=== PATIENT | female | born 2005 | race Two or more races ===

== ENCOUNTER 2025-03-07 09:47 | Outpatient (CLI) | payer MEDICAID ==
[2025-03-07 10:10] LABS: Basophils # (auto) 0 10 ^3/uL (0-0.2); Basophils % (auto) 0.1 % (0.0-2.0); Eosinophils # (auto) 0.2 10 ^3/uL (0-0.8); Nucleated Red Blood Cells % 0.1 %
[2025-03-07 10:11] LABS: Eosinophils % (auto) 1.4 % (0.0-7.0); Hematocrit 35.9 % (36.0-46.0); Lymphocytes # (auto) 2.3 10 ^3/uL (0.4-5.4); Lymphocytes % (auto) 14.9 % (10.0-50.0); Mean Corpuscular Hemoglobin 24.7 pg (28.0-32.0); Mean Corpuscular Hgb Conc. 33.3 g/dL (32.0-36.0); Mean Corpuscular Volume 74.2 fL (80.0-100.0); Monocytes # (auto) 0.7 10 ^3/uL (0-1.3); Monocytes % (auto) 4.9 % (0.0-12.0); Neutrophils % (auto) 78.7 % (37.0-80.0); Platelet Count (auto) 315 10^3/uL (140-450); Red Blood Cells 4.84 10^6/uL (4.0-5.20); Red Cell Distribution Width 14.7 % (11.8-14.3); White Blood Cell 15.2 10^3/uL (4.4-10.8)
== END 2025-03-07 17:00 | disposition home or self-care (01) ==
LOC: LAB 09:47
PROVIDERS: ATTEND Obstetrics & Gynecology
DX: Z34.80 Encounter for supervision of other normal pregnancy, unspecified trimester (principal)
CPT/HCPCS: 36415; 82951; 83036; 85025

== ENCOUNTER → 2025-03-20 | Outpatient (CLI) | payer MEDICAID | END | disposition home or self-care (01) | LOC: LAB 08:25 | PROVIDERS: ATTEND Obstetrics & Gynecology | DX: Z34.83 Encounter for supervision of other normal pregnancy, third trimester (principal) | CPT/HCPCS: 82951 ==

== ENCOUNTER → 2025-04-16 | Outpatient (CLI) | payer MEDICAID ==
[2025-04-16 11:56] LABS: Nucleated Red Blood Cells % 0.1 %
[2025-04-16 12:00] LABS: Hematocrit 37.9 % (36.0-46.0); Hemoglobin 12.6 g/dL (12.2-16.2); Mean Corpuscular Hemoglobin 24.9 pg (28.0-32.0); Mean Corpuscular Volume 74.7 fL (80.0-100.0)
[2025-04-18 00:06] LABS: Chlamydia Trachomatis, NAA Negative (Negative); Neisseria gonorrhoeae, NAA Negative (Negative)
== END | disposition home or self-care (01) ==
LOC: LAB 11:39
PROVIDERS: ATTEND Obstetrics & Gynecology
DX: Z34.80 Encounter for supervision of other normal pregnancy, unspecified trimester (principal); Z72.89 Other problems related to lifestyle; Z3A.00 Weeks of gestation of pregnancy not specified
CPT/HCPCS: 36415; 85025; 86780

== ENCOUNTER 2025-04-26 12:25 | Observation (INO) | payer MEDICAID ==
--- NOTE | 2025-04-26 15:00 | DVH ---
CLINICAL HISTORY: Decreased movement. COMPARISON: None TECHNIQUE: biophysical profile was performed. Transabdominal sonographic images of the fetus we re obtained. FINDINGS: The fetus is in cephalic position. heart rate measures 151 BPM. Amniotic fluid index measures 16 cm. The placenta is anterior in position without visualized evidence for previa or abrupt ion. BPP profile is an overall score of 8/8, with 2/2 points for breathing, with at least one episode of breathing over a 30 second duration during a 30 minute observation, 2/2 points for m ovements, with 3 or more discrete body or limb movements, 2/2 points for tone, with one or more episodes of extremity extension with return to flexion, or opening and closing of hand, and 2/ 2 points for amniotic fluid, with at least 1 pocket of amniotic fluid that measures 2 cm in 2 perpend icular planes. IMPRESSION: BPP score of 8/8.
[2025-04-26] MEDS ORDERED: PREN1TAB71 OR (15:01)
--- NOTE | 2025-04-27 07:42 | DVHDS2 ---
Physician Discharge Progress N Final Diagnosis: ABD PAIN,DEC MOVEMENT 37WKS Operations or Procedures: Operations or Procedures NST REACTIVE REVIEWDED,SONO Condition on Discharge: Good Disposition: Home Discharge Instructions: Diet: Regular Activity: No Restrictions, As Tolerated Medications: NA Follow Up Care: Specialist: 3D Discharge Statement: "Patient was advised to return to the ER or call 911 if any headaches, dizziness, shortness of breath, chest pain, abdominal pain, bleeding, fevers, or worsening of medical condition. Patient was counseled about treatment plan, medications, possible side effects, patientverbalized understanding. All questions were answered to the best of my ability. This discharge took greater then 30 minutes in planning, reviewing documentation, counseling the patient, and discussing with other team members." Visit Coding OBGYN Date of Service: Apr 26, 2025 Billing Provider: MIRTHA DE LA VEGA DO DIAGNOSTIC TECHNOLOGIST Common Visit Codes: [id number] INP/OBS CARE (HIGH) DIAGNOSTIC TECHNOLOGIST Procedure Codes: 22827-24- NON-STRESS TEST MIRTHA DE LA VEGA DO Apr 27, 2025 07:42
== END 2025-04-26 15:20 | disposition home or self-care (01) ==
LOC: LDRP 12:25
PROVIDERS: ADMIT Obstetrics & Gynecology; ATTEND Obstetrics & Gynecology
DX: O36.8130 Decreased fetal movements, third trimester, not applicable or unspecified (principal); Z98.890 Other specified postprocedural states; Z79.899 Other long term (current) drug therapy; Z3A.37 37 weeks gestation of pregnancy
CPT/HCPCS: 59025; 76819; 81002; G0378

== ENCOUNTER 2025-05-08 03:45 | Inpatient (IN) | payer MEDICAID ==
[2025-05-07 13:22] LABS: Hematocrit 38.6 % (36.0-46.0); Hemoglobin 13.0 g/dL (12.2-16.2); Mean Corpuscular Hemoglobin 25.1 pg (28.0-32.0); Mean Corpuscular Volume 74.6 fL (80.0-100.0); Nucleated Red Blood Cells % 0.2 %
[2025-05-07 13:34] LABS: INR 0.9 (0.9-1.15); Partial Thromboplastin Time 31.5 SEC (24.5-34.5); Prothrombin Time 9.6 sec (9.3-11.8)
[2025-05-07 13:35] LABS: Alanine Aminotransferase 10 U/L (7-40); Albumin 3.9 g/dL (3.2-4.8); Anion Gap 10 (5-15); BUN/Creatinine Ratio 12.5 (10.0-20.0); Bilirubin, Total 0.5 mg/dL (0.2-1.0); Calcium 9.0 mg/dL (8.7-10.4); Carbon Dioxide 24 mmol/L (20-31); Chloride 102 mmol/L (98-107); Glucose 81 mg/dL (74-106); Potassium 3.7 mmol/L (3.5-5.1); Sodium 136 mmol/L (136-145); Total Protein 7.0 g/dL (5.7-8.2); Uric Acid 5.5 mg/dL (3.1-7.8)
[2025-05-07 13:36] LABS: Alkaline Phosphatase 119 U/L (46-116); Blood Urea Nitrogen 6 mg/dL (9-23)
[2025-05-07 14:11] LABS: Urine Protein, UAD Negative (Negative)
[2025-05-07 14:18] LABS: Amphetamine Screen, Urine Neg (NEGATIVE); Barbiturate Scree,Urine Neg (NEGATIVE); Benzodiazephine Screen, Urine Neg (NEGATIVE); Cannabinoid Screen, Urine Neg (NEGATIVE); Cocaine Screen, Urine Neg (NEGATIVE); Opiate Scree,Urine Neg (NEGATIVE); Phencyclidine Screen, Urine Neg (NEGATIVE)
[~2025-05-08] VITALS: Ht 160 cm; Wt 61.2 kg
[2025-05-08] VITALS (18 sets, daily range): BP systolic 93–114; BP diastolic 50–71; PULSE 68–97; RESP 16–18; TEMP 97.8–98.4; O2SAT 96–100
[~2025-05-08 03:45] MED LIST: PREN1TAB71 OR
[2025-05-08] MEDS ORDERED: SODIUM CITR/CITRIC ACID ORAL SOLN 30 ML PO ONE (04:00)
[2025-05-08] MEDS: METOCLOPRAMIDE HCL 5MG/ml INJ 2ml VIAL IV ONE (04:00)
[2025-05-08] MEDS ORDERED: LACTATED RINGER'S 1,000 ML IV ONE (04:00)
[2025-05-08] MEDS: TETRACAINE 1% INJ 2 ML VIAL IJ ONE (06:55)
[2025-05-08] MEDS: ceFAZolin 2 GM/D5W50ml 50 ML IV ONE (07:04)
[2025-05-08] MEDS ORDERED: MORPHINE SULF PF 5 MG/10 ML VIAL ONE (07:06)
[2025-05-08] MEDS ORDERED: fentaNYL CITRATE 100 MCG/2 ML VL ONE (07:07)
[2025-05-08] MEDS ORDERED: DOCU-94 PO ×2 (07:10)
[2025-05-08] MEDS ORDERED: HYDR-4072 PO ×2 (07:10)
[2025-05-08] MEDS ORDERED: IBUP-1456 PO ×2 (07:10)
[2025-05-08] MEDS ORDERED: ONDANSETRON HCL 4 MG/2 ML VIAL IV PRN (07:15)
[2025-05-08] MEDS ORDERED: LACT. RINGERS/OXYTOCIN 20UNITS 1,000 ML IV ONE (07:15)
[2025-05-08] MEDS: GUM (CHEWING) 1 GUM CHEW CHEW ONE (07:15)
[2025-05-08] MEDS ORDERED: MIDAZOLAM HCL 2MG/2ML 2ml VIAL (1mg/ml) ONE (07:21)
[2025-05-08] MEDS: CARBOPROST TROMETHAMINE 250 MCG/1ML VIAL IM ONE ×2 (07:31→07:46)
[2025-05-08] MEDS ORDERED: HYDROmorphone HCL 2 MG/ML VL/or syr IV PRN ×2 (08:00→08:41)
[2025-05-08] MEDS ORDERED: hydrALAZINE HCL 20 MG/ML VL IV PRN (08:00)
[2025-05-08] MEDS: DIPHENOXYLATE W/ATROPINE 2.5 MG TAB ONE (08:30)
[2025-05-08] MEDS: LACTATED RINGER'S 1,000 ML IV SCH (09:00)
[2025-05-08] MEDS: diphenhdrAMINE HCL 50 MG/1 ML VL IV PRN (09:48)
[2025-05-08] MEDS: ACETAMINOPHEN IV 1000 MG/100ML (10MG/ML) IV PRN (14:09)
[2025-05-08] MEDS: ceFAZolin 1GM/50ML 50 ML IV SCH (14:57)
[2025-05-08] MEDS: ONDANSETRON HCL 4 MG/2 ML VIAL IV PRN (15:06)
--- NOTE | 2025-05-08 17:07 | DVHOP2 ---
Operative Report DATE OF OPERATION: 05/08/25 PREOPERATIVE DIAGNOSES: Term DESIRES PCS DUE TO ANXIETY,IUP AT 39WKS POSTOPERATIVE DIAGNOSES: SAME,OP,NUCHAL CORD,UTERINE ATONY SURGEON: Debbie Perla D.O./BENITO ANESTHESIOLOGIST: AMENA TYPE OF ANESTHESIA : SPINAL CONSENT: The patient was informed of the risks and benefits of the procedure. The patient was informed of the risks and benefits of the procedure. These include but are not limited to , complications of anesthesia, postoperative infection, incomplete relief of symptoms, recurrence of symptoms, damage to blood vessels, nerves and tendons, deep venous thrombosis, pulmonary embolism and possible need for repeat surgery in the future. FINDINGS: Baby [F] with Apgars of [9] and [9]. Grossly normal appearing tubes and ovaries.UTERINE ATONY RESPONDED TO HEMOBATE X2 PROCEDURES: Primary low transverse section. PROCEDURE IN DETAIL: The patient was taken to the operating room. She already had an epidural in place. She was then placed in supine position with a leftward tilt. A Pfannenstiel skin incision was made 2 cm above the symphysis pubis. This incision was carried to the underlying layer of fascia. The fascia was nicked in the midline. The incision was extended laterally. The superior aspect of the fascial incision was grasped and elevated. The same procedure was done to the inferior aspect of the fascial incision. The rectus muscles were then in the midline. Peritoneum was identified and entered. Peritoneal incision was extended superiorly and inferiorly with good visualization of the bladder. Bladder blade was inserted. Vesicouterine peritoneum was identified and entered. Lower uterine segment was incised in a transverse fashion. The was delivered from vertex presentation. Infant was baby [F] with Apgars [9] and [9]. Placenta was then r emoved manually. Uterus was exteriorized and cleared of all clots and debris. The incision was repaired using 0 Vicryl in a double-layered fashion. No bleeding was noted. Uterus was then returned to the abdomen. The gutters were cleared off all clots and debris. Peritoneum was closed using 0 Vicryl, fascia was closed using 0 Maxon, and skin was closed using emmy. The patient tolerated the procedure well. She was taken to the recovery room in stable condition. ESTIMATED BLOOD LOSS: Estimated blood loss was noted to be 800 mL. Visit Coding OBN Date of Service: May 08, 2025 Billing Provider: DEBBIE PERLA DO METAL STORAGE WORKER Common Visit Codes: [id number] OBS CARE (HIGH) METAL STORAGE WORKER Procedure Codes: [id number] DELIVERY ONLY DEBBIE PERLA DO May 08, 2025 17:06
--- NOTE | 2025-05-08 17:08 | POSTOP ---
Post-Operative Note Post-Operative Note Preop Diagnosis TERM PREG DESIRES PCS,ANXIETY Postop Diagnosis: SAME,OP,NUCHAL CORDX1,UTERINE ATONY Operation performed PLTCS Specimen BABY GIRL,APGARS 9-9,OP Anesthesia: Regional Anesthesiologist: AMENA Blood Loss(fluid mgmt) 800ML Surgeon Mirtha Perla Social Director BENITO Implant NA Complications & Mgmt NONE Date 05/08/25 Time 17:07 Visit Coding OBGYN Date of Service: May 08, 2025 Billing Provider: MIRTHA PERLA DO TAX MANAGER CPA Common Visit Codes: [id number] OBS CARE (HIGH) TAX MANAGER CPA Procedure Codes: [id number] DELIVERY ONLY MIRTHA PERLA DO May 08, 2025 17:08
[2025-05-08] MEDS: MORPHINE SULFATE INJ 2 MG/ml SYRG IM ONE (17:47)
[2025-05-08 22:04] LABS: Hemoglobin 11.0 g/dL (12.2-16.2); Nucleated Red Blood Cells % 0.0 %
[2025-05-08 22:05] LABS: Hematocrit 33.1 % (36.0-46.0); Mean Corpuscular Hemoglobin 25.0 pg (28.0-32.0); Mean Corpuscular Volume 75.2 fL (80.0-100.0)
[2025-05-09] VITALS (14 sets, daily range): BP systolic 100–118; BP diastolic 62–74; PULSE 69–112; RESP 16–18; TEMP 97.6–99.9; O2SAT 96–100
--- NOTE | 2025-05-09 06:14 | DVHPN2 ---
Progress Note Date Seen: May 09, 2025 Subjective Patient resting upon entry to room. Prefers her translate for her, rather than the iPad box fabricator service. Having some incision pain and requesting medication SUBJECTIVE -Lochia minimal -Regular diet well tolerated. -Ambulating and voiding well w/o feeling dizzy or lightheaded -Pain relieved with oral medication PRN. Requesting more now -Passing flatus but no BM yet. -Bottlefeeding every 3-4 hours w/o problem vital signs Vital Sign Date Time Temp Pulse Resp B/P (MAP) Pulse Ox O2 Delivery O2 Flow Rate FiO2 05/09/25 05:50 69 16 97 05/09/25 03:00 98.3 98.3 05/08/25 19:00 Room Air 05/08/25 17:47 113/50 05/08/25 08:50 0 05/08/25 08:50 97 Total Intake and Output 05/08/25 05/08/25 05/09/25 15:00 23:00 07:00 Intake Total 50 ml Output Total 900 ml 450 ml 1950 ml Balance -850 ml -450 ml -1950 ml medications Current Medications Medications Dose Ordered Sig/He Route Start Time Stop Time Status Last Admin Dose Admin Lactated Ringer's 1,000 ml @ 125 mls/hr Q8H IV 05/08/25 04:00 05/08/25 09:00 125 MLS/HR Diphenhydramine HCl 25 mg Q4HP PRN IV 05/08/25 08:00 05/08/25 09:48 25 MG Ondansetron HCl 4 mg Q4HP PRN IV 05/08/25 08:00 05/08/25 15:06 4 MG laboratory and microbiology Laboratory Tests 05/08/25 21:44 05/07/25 12:41 Test 05/07/25 12:41 Range/Units Serum Glucose 81 74-106 mg/dL Objective OBJECTIVE -A&O x4. No apparent distress. Affect appropriate -Afebrile, VSS -Chest: heart and lung sounds normal. -Breasts: Nipples intact w/o cracks or soreness -Abdomen: normal BS, soft, non-tender, no rebound or guarding, fundus firm @ U- 1. Wearing abdominal binder -Lower abdominal incision site with dressing dry and intact. No edema, erythema or induration -Extremities: no edema or tenderness Problems(with codes): (1) Status post delivery Assessment/Plan ASSESSMENT -19 yo now Post operative & ppd # 1 s/p Primary Section for anxiety, doing well. -Blood Type: B+ -Bottle feeding -Rubella Immune PLAN -Continue pain management with medications as previously ordered. One time ofirmev 1000mg IV ordered before switching to PO post-op medications -Increase fluid intake and fiber in diet to promote regular bowel movements, Laxative PRN -Educated patient on self-care and warning signs to watch for, including PPH, PPD, and pre-eclampsia -Continue routine care Plan discussed with: Patient, Spouse Plan discussed with: Patient, Spouse Visit Coding OBGYN Date of Service: May 09, 2025 Billing Provider: NIKKY MYERS CNM SCRAP HOIST OPERATOR Common Visit Codes: [id number] INP/OBS CARE(HIGH) NIKKY MYERS CNM May 09, 2025 06:14
[2025-05-09] MEDS: ACETAMINOPHEN IV 1000 MG/100ML (10MG/ML) IV ONE (06:20)
[2025-05-09] MEDS: ceFAZolin 1GM/50ML 50 ML IV ONE (07:25)
[2025-05-09 08:17] LABS: Hemoglobin 10.6 g/dL (12.2-16.2); Nucleated Red Blood Cells % 0.0 %
[2025-05-09 08:19] LABS: Hematocrit 31.5 % (36.0-46.0); Mean Corpuscular Hemoglobin 25.0 pg (28.0-32.0); Mean Corpuscular Volume 74.3 fL (80.0-100.0)
[2025-05-09] MEDS ORDERED: HYDROcodone-ACET 5/325MG TAB PO PRN (09:45)
[2025-05-09] MEDS: DOCUSATE SOD 100 MG CAP PO SCH (10:00)
[2025-05-09] MEDS: SIMETHICONE 80 MG CHEWABLE TABLET PO SCH (11:22)
[2025-05-09] MEDS: IBUPROFEN 800 MG TAB PO PRN (11:22)
[2025-05-09 20:20] LABS: Urine Protein, UAD Negative (Negative)
[2025-05-09] MEDS: HYDROcodone-ACET 5/325MG TAB PO PRN (23:22)
[2025-05-10 03:00] VITALS: BP 100/58; PULSE 97; RESP 17; TEMP 98; O2SAT 100
--- NOTE | 2025-05-10 06:04 | DVHPN2 ---
Progress Note Date Seen: May 10, 2025 Subjective Civil Engineering Project Manager [id number] used for this visit as pt was asleep on couch Patient sitting up in bed upon entry to room. She states she feels cold/shaky from time to time and her incision hurts when she moves. She does not feel comfortable going home today because she doesn't want her to "shoulder the burden" of taking care of her and the baby. She feels that one more day with the nurses' assistance will help her recover faster SUBJECTIVE: -Lochia minimal -Regular diet well tolerated. -Ambulating and voiding well w/o feeling dizzy or lightheaded -Pain relieved with oral medication PRN -Passing flatus but no BM yet. -Bottlefeeding w/o problem -Desires and requests to be discharged home tomorrow (05/11/25) vital signs Vital Sign Date Time Temp Pulse Resp B/P (MAP) Pulse Ox O2 Delivery O2 Flow Rate FiO2 05/10/25 03:00 98.0 97 17 100/58 (72) 100 98.0 05/09/25 19:00 Room Air 05/09/25 07:00 0.0 05/08/25 08:50 97 Total Intake and Output 05/09/25 05/09/25 05/10/25 15:00 23:00 07:00 Output Total 1400 ml 525 ml Balance -1400 ml -525 ml medications Current Medications Medications Dose Ordered Sig/He Route Start Time Stop Time Status Last Admin Dose Admin Lactated Ringer's 1,000 ml @ 125 mls/hr Q8H IV 05/08/25 04:00 05/08/25 09:00 125 MLS/HR Diphenhydramine HCl 25 mg Q4HP PRN IV 05/08/25 08:00 05/08/25 09:48 25 MG Ondansetron HCl 4 mg Q4HP PRN IV 05/08/25 08:00 05/08/25 15:06 4 MG Docusate Sodium 100 mg Q12HR PO 05/09/25 10:00 05/09/25 23:18 100 MG Dimethicone 80 mg QID PO 05/09/25 12:00 05/10/25 05:25 80 MG Ibuprofen 800 mg Q8HP PRN PO 05/09/25 09:45 05/09/25 11:22 800 MG Acetaminophen/ Hydrocodone Bitart 1 tab Q4HPRN PRN PO 05/09/25 09:45 05/09/25 23:22 1 TAB Acetaminophen/ Hydrocodone Bitart 2 tab Q4HPRN PRN PO 05/09/25 09:45 laboratory and microbiology Laboratory Tests 05/09/25 07:54 05/07/25 12:41 Test 05/07/25 12:41 Range/Units Serum Glucose 81 74-106 mg/dL Objective OBJECTIVE: -A&O x4. No apparent distress. Affect appropriate -Afebrile, VSS -Chest: heart and lung sounds normal. -Breasts: Nipples intact w/o cracks or soreness -Abdomen: normal BS, soft, non-tender, no rebound or guarding, fundus firm @ U- 1, -Lower abdominal incision site with dressing dry and intact. No edema, erythema or induration -Extremities: no edema or tenderness Problems(with codes): (1) Status post delivery Assessment/Plan ASSESSMENT 19 yo now Post operative & ppd #2 s/p Primary Section for anxiety, doing well. Blood Type: B+ Bottle feeding Rubella Immune PLAN -Continue pain management with oral medications as previously ordered -Increase fluid intake and fiber in diet to promote regular bowel movements, Laxative PRN -Educated patient on self-care and warning signs to watch for -Continue routine care. Encouraged patient to balance rest and walking today so she feels more independent and capable of going home tomorrow Plan discussed with: Patient Plan discussed with: Patient Visit Coding OBGYN Date of Service: May 10, 2025 Billing Provider: NIKKY MYERS CNM GENERAL CONTRACTOR Common Visit Codes: [id number] INP/OBS CARE(HIGH) NIKKY MYERS CNM May 10, 2025 06:04
[2025-05-10 07:00] VITALS: BP 101/62; PULSE 97; RESP 16; TEMP 98.6; O2SAT 97
[2025-05-10 11:00] VITALS: BP 107/64; PULSE 89; RESP 16; TEMP 97.6; O2SAT 99
[2025-05-10 15:11] VITALS: BP 98/68; PULSE 97; RESP 17; TEMP 97.6; O2SAT 98
--- NOTE | 2025-05-15 11:48 | DVHHP ---
ADMIT DATE: 05/08/2025 CHIEF COMPLAINT: Desires primary . HISTORY OF PRESENT ILLNESS: The patient is a 1, para 0 female with EDC 05/12, estimated gestational age of 39+ weeks, admitted for primary due to severe anxiety. The patient states under no circumstance she wants to go through labor. She has a lot of anxiety and is requesting primary . Risks, complications, indication, alternative, need for further surgery or repeat section in the future were discussed with the patient. Possibility of bleeding, infection, PE, , and DVT discussed with the patient. The patient fully understands and wishes to proceed with the planned procedure. PAST MEDICAL HISTORY: Anxiety. PAST SURGICAL HISTORY: None. SOCIAL HISTORY: None. FAMILY HISTORY: None. BOTTOM PAINTER HISTORY: Primigravid. REVIEW OF SYSTEMS: Consistent with HPI. PHYSICAL EXAMINATION: VITAL SIGNS: Stable, afebrile. HEENT: Within normal limits. CARDIOVASCULAR: Regular rate and rhythm. LUNGS: Clear to auscultation. BREASTS: Symmetrical, no masses. ABDOMEN: Gravid. Positive heart. Estimated weight 7 pounds. EXTREMITIES: No clubbing, cyanosis, or edema. PELVIC: Cervix closed, thick, high. IMPRESSION: Intrauterine at 39+ weeks, for primary due to severe anxiety. PLAN: Primary low transverse section. Informed consent obtained. Risks, complications of surgery including infection, bleeding, hematoma formation, injury to bowel or bladder or surrounding organs, possibility of DVT, pulmonary embolism, risk of anesthesia, possibility of from complications were discussed with the patient. Need for future surgery, repeat in the future discussed with the patient. The patient fully understands. She wishes to proceed with the planned procedure. DO JAZ Singleton TID: [id number] RECEIPT: [id number]
== END 2025-05-10 16:58 | disposition home or self-care (01) | DRG 540 ==
LOC: LDRP 03:45
PROVIDERS: ADMIT Obstetrics & Gynecology; ATTEND Obstetrics & Gynecology
PROC: 10D00Z1 Extraction of Products of Conception, Low, Open Approach (ICD-10-PCS; principal; 2025-05-08 07:04)
DX: O99.344 Other mental disorders complicating childbirth (principal); R71.0 Precipitous drop in hematocrit; F41.9 Anxiety disorder, unspecified; O69.81X0 Labor and delivery complicated by cord around neck, without compression, not applicable or unspecified; O62.2 Other uterine inertia; Z37.0 Single live birth; Z3A.39 39 weeks gestation of pregnancy
CPT/HCPCS: 36415; 59025; 80053; 80307; 81001; 81002; 84550; 85025; 85610; 85730; 86780; 86803; 86850; 86900; 86901; 94760; 94762; 96360; 96361; 96365; 96374; 96375; G0378; J0131; J2250; J2405; J2590

== ENCOUNTER 2025-05-12 18:31 | Emergency (ER) | payer MEDICAID ==
[~2025-05-12] VITALS: Ht 160 cm; Wt 61.9 kg
[~2025-05-12 18:31] MED LIST changes: +DOCU-94 PO; +HYDR-4072 PO; +IBUP-1456 PO
[2025-05-12 18:33] VITALS: BP 119/77; PULSE 100; RESP 18; TEMP 98.2; O2SAT 97
== END 2025-05-12 20:47 | disposition left against medical advice (07) ==
LOC: ER 18:33
DX: N64.4 Mastodynia (principal); Z53.21 Procedure and treatment not carried out due to patient leaving prior to being seen by health care provider